=== PATIENT | female | born 1970 | race Caucasian/White ===

== ENCOUNTER 2016-06-28 15:05 | Emergency (ER) | payer OTHER ==
[~2016-06-28] VITALS: Ht 167.6 cm; Wt 72.6 kg
--- NOTE | 2016-06-28 15:21 | ED AMS/SEIZURE/WEAK/DIZZY ---
History of Present Illness General Chief Complaint: Dizziness Stated Complaint: DIZZINESS X 1WK Source: patient, family Exam Limitations: no limitations Vital Signs & Intake/Output Vital Signs & Intake/Output Vital Signs Date Time Temp Pulse Resp B/P Pulse O2 O2 Flow FiO2 Ox Delivery Rate 06/28 1717 98.0 67 16 117/71 97 Room Air 06/28 1553 99 Room Air 06/28 1508 97.2 90 14 131/82 98 Room Air ED Intake and Output 06/29 0000 06/28 1200 Intake Total Output Total Balance Patient 160 lb Weight Allergies Coded Allergies: No Known Allergies (06/28/16) Reconcile Medications Diazepam (Valium) 5 MG TABLET 1 TAB PO Q8 PRN dizziness may cause drowsiness Meclizine HCl 25 MG TABLET 1 TAB PO TID PRN DIZZINESS (Reported) Multivitamin (Multi-Day Vitamins) 1 EACH TABLET 1 TAB PO DAILY SUPPLEMENT ( Reported) Ondansetron HCl 4 MG TABLET 1 TAB PO Q8H PRN N/V (Reported) Triage Note: 45 Y/O FEMALE C/O INTERMITTENT DIZZINESS SINCE MONDAY; WAS EVAL'D AT WALK IN MONDAY AND GIVEN SCRIPTS HOWEVER STATES MEDS ARE NOT EFFECTIVE. CONTINUES TO FEEL DIZZINESS, "ITS ALWAYS THERE". DENIES N/V/D. SPEAKING CLEARLY WITH NO DEFICITS NOTED. AFEBRILE. Triage Nurses Notes Reviewed? yes : No Patient currently breastfeeds: No HPI: patient is a 45-year-old female presents complaining of dizziness for approximately 5 days. Patient reports dizziness as a room spinning and off balance sensation. Symptoms are currently moderate, reports gradual improvement over the past couple of days but symptoms continue. Symptoms worsen with standing for prolonged period of time and light. Mild associated blurred vision. Patient was seen at an urgent care clinic 2 days ago and placed on Zofran and meclizine. Patient was told that if her symptoms did not improve in a couple of days that she should be evaluated further. Intermittent associated nausea. Patient reports when she turns her head she feels a sensation of her head being pulled to the side. Patient has been able to tolerate food and liquids. Patient denies fevers, chills, chest pain, palpitations, head injury. (MIRELA DONATO,ANA MARÍA) Past History Travel History Traveled to [place] past 21 day No Medical History Any Pertinent Medical History? none Neurological: NONE EENT: NONE Cardiovascular: NONE Respiratory: NONE Gastrointestinal: NONE Hepatic: NONE Renal: NONE Musculoskeletal: NONE Psychiatric: NONE Endocrine: NONE Blood Disorders: NONE Cancer(s): NONE BRICK KILN BURNER/Reproductive: NONE Surgical History Surgical History: tonsillectomy Psychosocial History What is your primary language Marshallese Tobacco Use: Never used ETOH Use: occasional use Illicit Drug Use: denies illicit drug use Family History Hx Contributory? No (ANA MARÍA NASH) Review of Systems Review of Systems Constitutional: Denies: chills, fever. EENTM: Reports: blurred vision. Respiratory: Denies: cough, short of breath. Cardiovascular: Denies: chest pain, palpitations, syncope. GI: Reports: nausea. Denies: abdominal pain, vomiting. Genitourinary: Reports: no symptoms. Musculoskeletal: Reports: no symptoms. Skin: Reports: no symptoms. Neurological/Psychological: Reports: see HPI. Hematologic/Endocrine: Reports: no symptoms. Immunologic/Allergic: Reports: no symptoms. (ANA MARÍA NASH) Physical Exam Physical Exam General Appearance: well developed/nourished, alert, awake Head: atraumatic, normal appearance Eyes: Bilateral: PERRL, other (mild horizontal nystagmus). Ears, Nose, Throat: normal pharynx, normal ENT inspection, hearing grossly normal Neck: normal inspection, supple, full range of motion, no appreciable carotid bruit Respiratory: normal breath sounds, chest non-tender, no respiratory distress, lungs clear Cardiovascular: regular rate/rhythm (no appreciable murmur) Gastrointestinal: soft, non-tender Back: normal inspection, normal range of motion Extremities: normal range of motion Neurologic/Psych: no motor/sensory deficits, awake, alert, oriented x 3, normal gait, normal mood/affect, program director cable television II-XII nml as tested Skin: intact, normal color, warm/dry Lymphatic: no anterior cervical john Core Measures ACS in differential dx? No CVA/TIA Diagnosis: No Severe Sepsis Present: No Septic Shock Present: No (ANA MARÍA NASH) Progress Differential Diagnosis: arrythmia, alcohol intoxication, benign positional vertigo, CVA/stroke, drug intoxication, electrolyte imbalance, intracranial Hem. , intracranial mass/tumor, labrynthitis, Meniere's disease, seizure disorder, subarachnoid Hem., UTI/pyelo, vertebrobasilar insuff Plan of Care: Orders Procedure Date/time Status URINE 06/28 153 Complete COMPREHENSIVE METABOLIC PANEL 06/28 1534 Complete CBC WITHOUT DIFFERENTIAL 06/28 153 Complete EKG 06/28 1508 Active Laboratory Tests 06/28/16 1546: Anion Gap 10, Estimated GFR > 60, BUN/Creatinine Ratio 15.0, Glucose 93, Calcium 9.6, Total Bilirubin 0.4, AST 28, ALT 72 H, Alkaline Phosphatase 53, Total Protein 6.7, Albumin 4.1, Globulin 2.6, Albumin/Globulin Ratio 1.6, CBC w Diff NO MAN DIFF REQ, RBC 4.55, MCV 90.2, MCH 30.4, RDW 13.1, MPV 7.7, Gran % 71, Lymphocytes % 22.1, Monocytes % 5.6, Basophils % 0.3, Absolute Granulocytes 7.4 H, Absolute Lymphocytes 2.3, Absolute Monocytes 0.6, Absolute Eosinophils 0.1, Absolute Basophils 0, PUBS MCHC 33.7 06/28/16 1537: Urine Test NEGATIVE 06/28/2016 5:27:53 PM: Patient reports some improvement after Valium. Patient has been ambulatory to the bathroom without significant ataxia. Discussed results of CT and labs with patient and her . Patient appears stable for discharge. (MIRELA DONATO,ANA MARÍA) Diagnostic Imaging: Viewed by Me: CT Scan. Discussed w/RAD: CT Scan. Radiology Impression: PATIENT: NICHOLAS BUNDY PRESENT AGE: 45 PATIENT ACCOUNT NO: [id number] : 71 LOCATION: [facility] ORDERING PHYSICIAN: ANA MARÍA DONATO SERVICE DATE: 06/28/16 EXAM TYPE: CAT - CT HEAD WO IV CONTRAST EXAMINATION: CT HEAD WITHOUT CONTRAST CLINICAL INFORMATION: Dizziness and nausea. Evaluate for intracranial hemorrhage or mass. COMPARISON: No relevant prior imaging available. TECHNIQUE: Contiguous axial imaging was performed from the skull base to vertex without intravenous administration of contrast. DLP: 600.71 mGy-cm FINDINGS: There is no acute intracranial hemorrhage or abnormal extra-axial collection. No intracranial mass effect midline shift. Lateral and third ventricles are normal. No hydrocephalus. Subramanian-white matter differentiation is preserved and there is no evidence of acute territorial infarct. The calvarium and skull base are intact. Mastoid air cells and middle ear cavities are well aerated. Visualized paranasal sinuses are well- aerated. Globes and orbits are symmetric. IMPRESSION: Unremarkable CT scan of the head. No evidence of acute territorial infarct or hemorrhage. DICTATED BY: JORGE LUIS GREENFIELD MD DATE/TIME DICTATED:06/28/161708 TAPPING MACHINE OPERATOR: TYE DATE/TIME TRANSCRIBED:06/28/161708 CONFIDENTIAL, DO NOT COPY WITHOUT APPROPRIATE AUTHORIZATION. <Electronically signed in Other Vendor System> SIGNED BY: JORGE LUIS GREENFIELD MD 06/28/16 171 Initial ED EKG: normal axis, normal intervals, normal p-waves, normal QRS complex, normal sinus rhythm, no ST T wave changes (ANA MARÍA NASH) Departure Departure Time of Disposition: 1727 Disposition: HOME OR SELF CARE Condition: Stable Clinical Impression Primary Impression: Vertigo Referrals: SARAH STRANGE MD (PCP/Family) KENDRICK LOPEZ MD Additional Instructions: Continue the meclizine and Zofran as previously directed. If needed Valium as directed. Valium may make him drowsy. Follow-up with your primary doctor or with the ear nose and throat doctor listed in her discharge paperwork if no improvement within 1-2 days. Return to the emergency department if numbness, weakness, difficulty ambulating, unable to say hydrated, or worsening of symptoms. Departure Forms: Customer Survey General Discharge Information Prescriptions: Current Visit Scripts Diazepam (Valium) 1 TAB PO Q8 PRN dizziness #10 TAB may cause drowsiness (ANA MARÍA NASH) PA/BANQUET PREP COOK Co-Sign Statement Statement: ED Attending supervision documentation- [] I saw and evaluated the patient. I have also reviewed all the pertinent lab results and diagnostic results. I agree with the findings and the plan of care as documented in the PA's/BANQUET PREP COOK's documentation. [X] I have reviewed the ED Record and agree with the PA's/BANQUET PREP COOK's documentation. [] Additions or exceptions (if any) to the PAs/BANQUET PREP COOK's note and plan are summarized below: [] (ARANZA PERKINS,MANSOOR)
[2016-06-28 15:54] LABS: ABSOLUTE BASOPHIL COUNT 0 /CUMM (0.0-0.2); ABSOLUTE EOSINOPHIL COUNT 0.1 /CUMM (0.0-0.7); ABSOLUTE GRANULOCYTE CT 7.4 /CUMM (1.4-6.5); ABSOLUTE LYMPH COUNT 2.3 /CUMM (1.2-3.4); ABSOLUTE MONOCYTE COUNT 0.6 /CUMM (0.10-0.60); BASOPHIL % 0.3 % (0.0-2.0); GRANULOCYTE % 71 % (42.2-75.2); MEAN CORPUSCULAR HGB 30.4 PG (27.0-31.0); MEAN CORPUSCULAR HGB CONC 33.7 G/DL (33.0-37.0); MEAN PLATELET VOLUME 7.7 FL (7.4-10.4); PLATELET COUNT 375 /CUMM (130-400); RBC DISTRIBUTION WIDTH 13.1 % (11.5-14.5); RED BLOOD CELL CT 4.55 /CUMM (4.20-5.40); WHITE BLOOD CELL COUNT 10.4 /CUMM (4.8-10.8)
[2016-06-28 15:56] LABS: MEAN CORPUSCULAR VOLUME 90.2 FL (81.0-99.0)
[2016-06-28] MEDS ORDERED: MECLIZINE HCL25 MG PO (16:50)
[2016-06-28] MEDS ORDERED: ONDANSETRON HCL4 MG PO (16:50)
[2016-06-28] MEDS ORDERED: MULTI-DAY VITA1 EACH PO (16:50)
--- NOTE | 2016-06-28 17:14 | CT SCAN REPORT ---
EXAMINATION: CT HEAD WITHOUT CONTRAST CLINICAL INFORMATION: Dizziness and nausea. Evaluate for intracranial hemorrhage or mass. COMPARISON: No relevant prior imaging available. TECHNIQUE: Contiguous axial imaging was performed from the skull base to vertex without intravenous administration of contrast. DLP: 600.71 mGy-cm FINDINGS: There is no acute intracranial hemorrhage or abnormal extra-axial collection. No intracranial mass effect midline shift. Lateral and third ventricles are normal. No hydrocephalus. Subramanian-white matter differentiation is preserved and there is no evidence of acute territorial infarct. The calvarium and skull base are intact. Mastoid air cells and middle ear cavities are well aerated. Visualized paranasal sinuses are well-aerated. Globes and orbits are symmetric. IMPRESSION: Unremarkable CT scan of the head. No evidence of acute territorial infarct or hemorrhage.
[2016-06-28 17:17] VITALS: BP 117/71
[2016-06-28] MEDS ORDERED: VALIUM5 M2 PO (17:29)
== END 2016-06-28 17:36 ==
LOC: ERH 15:05
PROVIDERS: Physician Assistant
DX: R42 Dizziness and giddiness (principal); H53.8 Other visual disturbances; R11.0 Nausea
CPT/HCPCS: 81025; 93005; 93010; J3360